=== PATIENT | male | born 1990 | race Caucasian/White ===

== ENCOUNTER 2021-10-13 16:17 | Emergency (ER) | payer SELFPAY ==
[~2021-10-13] VITALS: Ht 180.3 cm; Wt 81.8 kg
[2021-10-13] MEDS ORDERED: ONDANSETRON HCL INJ 2MG/ML 2ML 2 MG/ML VIAL IV STA (16:50)
[2021-10-13] MEDS ORDERED: SODIUM CHLORIDE 0.9% 100 ML ONE (16:50)
[2021-10-13] MEDS ORDERED: KETOROLAC TROMETHAMINE 30 MG/ML VIAL IV STA (16:50)
[2021-10-13] MEDS ORDERED: Ampicillin/Sulbactam 3 GM Vial ONE (16:50)
[2021-10-13] MEDS ORDERED: KETOROLAC TROMETHAMINE 30 MG/ML VIAL ONE (16:54)
[2021-10-13] MEDS ORDERED: ONDANSETRON HCL INJ 2MG/ML 2ML 2 MG/ML VIAL ONE (16:54)
[2021-10-13] MEDS ORDERED: HYDROCODONE/APAP 5MG-325MG TAB ONE (16:54)
[2021-10-13] MEDS ORDERED: HYDROCODONE/APAP 5MG-325MG TAB PO ONE (17:00)
[2021-10-13] MEDS ORDERED: SODIUM CHLORIDE 0.9% 1000ML 1,000 ML IV STA (17:03)
[2021-10-13] MEDS ORDERED: SODIUM CHLORIDE 0.9% 1000ML 1,000 ML ONE (17:16)
[2021-10-13] MEDS ORDERED: AUGMENTIN PO (17:20)
== END 2021-10-13 17:51 | disposition home or self-care (01) ==
LOC: FSED 16:52
DX: L03.113 Cellulitis of right upper limb (principal); W55.03XA Scratched by cat, initial encounter; Y92.098 Other place in other non-institutional residence as the place of occurrence of the external cause
CPT/HCPCS: 80053; 85025; 96374; 96375; 99283; J0295; J1885; J2405; J7030; J7050

== ENCOUNTER 2021-10-31 16:07 | Emergency (ER) | payer SELFPAY ==
[~2021-10-31] VITALS: Ht 180.3 cm; Wt 81.6 kg
[~2021-10-31 16:07] MED LIST: AUGMENTIN PO
[2021-10-31] MEDS ORDERED: PIPERACILLIN/TAZOBACTAM 3.375 GM VIAL ONE (16:35)
[2021-10-31] MEDS ORDERED: SODIUM CHLORIDE 0.9% 100 ML ONE (16:36)
[2021-10-31] MEDS ORDERED: CEFDINIR300 MG PO (16:51)
[2021-10-31] MEDS ORDERED: BACTRIM DS TAB1 EACH PO (16:51)
== END 2021-10-31 17:07 | disposition home or self-care (01) ==
LOC: FSED 16:18
DX: L03.113 Cellulitis of right upper limb (principal); W55.01XA Bitten by cat, initial encounter
CPT/HCPCS: 87040; 99283; J2543; J7050